=== PATIENT | female | born 2000 | race Two or more races ===

== ENCOUNTER → 2024-08-12 | Outpatient (CLI) | payer MEDICAID, SELFPAY ==
--- NOTE | 2024-08-12 11:30 | XR_ITS ---
Examination: Breast ultrasound, unilateral, left complete Date and time of exam: August 12, 2024 1132 hours INDICATIONS: History palpable lump with pain left breast 2 years, left breast sonogram June 15, 2023 retroareolar circumscribed nodule 18 x 11 x 17 mm Technique: Real-time varghese scale ultrasonographic imaging performed left breast including all 4 quadrants as well as nipple retroareolar and axillary region. Findings: Retroareolar nodule 20 x 18 x 26 mm, lobular margins, partially indistinct IMPRESSION: Enlarging retroareolar nodule, BI-RADS 4 suspicious abnormality Recommend ultrasound-guided breast biopsy to exclude breast carcinoma
== END | disposition home or self-care (01) ==
PROVIDERS: PCP Physician Assistant; Referring Provider Physician Assistant; Visit Provider Physician Assistant
DX: N63.42 Unspecified lump in left breast, subareolar (principal)
CPT/HCPCS: 76641

== ENCOUNTER → 2025-02-07 | Outpatient (CLI) | payer MEDICAID, SELFPAY ==
--- NOTE | 2025-02-07 08:30 | XR_ITS ---
Examinations: Ultrasound-guided percutaneous breast biopsy, left breast retroareolar nodule Left breast sonography limited INDICATIONS: BI-RADS 4 suspicious nodule retroareolar region left breast on left breast sonogram August 12, 2024 Exam date and time: February 07, 2025 1016 hours. Informed consent provided. Technique: A timeout was completed verifying correct patient, procedure, site, positioning, and special equipment if applicable Informed consent provided. The patient was placed in a supine position for the breast biopsy. Sonographic images of the breast were performed for localization of the suspicious nodule The patient's breast was prepped and draped in sterile fashion. Maximum sterile barrier technique, hand hygiene, ultrasound sterile technique 1% lidocaine was used to anesthetize the skin and breast adjacent to the suspicious nodule. Utilizing ultrasonographic guidance, 8 core biopsies were obtained of the suspicious nodule utilizing an 18-gauge BioPince needle. The specimens appears satisfactory. US guided breast biopsy marker placement. Estimated blood loss 3 cc. The patient tolerated the procedure well and there were no complications. Impression: Successful ultrasound-guided percutaneous breast biopsy, left breast retroareolar nodule. Ultrasound guided breast biopsy marker placement.
[2025-02-07 09:52] LABS: Basophils % (Auto) 1 % (0-2.5); Eosinophils # (Auto) 0.2 Thou/mm3 (0.0-0.5); Eosinophils % (Auto) 2 % (0-10); Hematocrit 32.6 % (36.0-46.0); Hemoglobin 10.7 g/dL (12.0-16.0); Immature Granulocytes % (Auto) 0 % (0-0); Immature Granulocytes Auto 0.01 Thou/mm3 (0.00-0.00); Lymphocytes # (Auto) 2.6 Thou/mm3 (1.0-4.8); Lymphocytes % (Auto) 33 % (10-50); Mean Corpuscular HGB Conc 32.8 g/dl (31.0-37.0); Mean Corpuscular Hemoglobin 25.2 pg (25.0-35.0); Mean Corpuscular Volume 77 fL (80-100); Monocytes # (Auto) 0.7 Thou/mm3 (0.0-0.8); Monocytes % (Auto) 8 % (0-12); Neutrophils # (Auto) 4.4 Thou/mm3 (1.8-7.7); Neutrophils % (Auto) 56 % (37-80); Nucleated Red Blood Cell % 0 /100 WBC (0); Platelet Count 260 Thou/mm3 (140-440); RDW Standard Deviation 44.7 fL (36.4-46.3); Red Blood Count 4.24 Miln/mm3 (4.00-5.20); White Blood Count 7.9 Thou/mm3 (3.6-11.0)
[2025-02-07 10:00] LABS: Partial Thromboplastin Time 24.6 Seconds (22.0-36.0); Prothrombin Time 10.7 Seconds (9.0-12.2)
[2025-02-07 10:53] LABS: HCG,Qualitative Serum Negative
== END | disposition home or self-care (01) ==
LOC: SDIM 08:31 → SIRX 09:24
PROVIDERS: Radiology Diagnostic Radiology; PCP Physician Assistant; Referring Provider Physician Assistant; Visit Provider Physician Assistant
DX: D24.2 Benign neoplasm of left breast (principal); N62 Hypertrophy of breast; Z01.812 Encounter for preprocedural laboratory examination
CPT/HCPCS: 19083; 36415; 84703; 85025; 85610; 85730; A4648